=== PATIENT | female | born 1975 | race African-American/Black ===

== ENCOUNTER 2021-05-17 23:31 | Inpatient (IN) | payer OTHER ==
[~2021-05-17] VITALS: Ht 152.4 cm; Wt 86.2 kg
[2021-05-17 23:43] VITALS: BP 156/89
[2021-05-17] MEDS ORDERED: HUMALOG100 UNIT/1 SUBQ (23:49)
[2021-05-17] MEDS ORDERED: LANTUS SUBQ (23:49)
[2021-05-17] MEDS ORDERED: HYPERTENSION MED (23:50)
[2021-05-18 00:45] LABS: URINE BILIRUBIN NEGATIVE (Negative); URINE BLOOD TRACE (Negative); URINE CLARITY CLEAR; URINE COLOR YELLOW; URINE GLUCOSE-RANDOM* 3+ (Negative); URINE KETONES NEGATIVE (Negative); URINE LEUKOCYTES-REFLEX NEGATIVE (Negative); URINE NITRITE-REFLEX NEGATIVE (Negative); URINE PROTEIN (DIPSTICK) TRACE (Negative); URINE SPECIFIC GRAVITY 1.015 (1.005-1.035); URINE UROBILINOGEN 0.2 E.U./dl (0.2-1.0)
[2021-05-18 00:47] LABS: ABSOLUTE NEUTROPHILS 7.2 thou/uL (1.4-8.2); BASOPHILS 0.6 % (0.0-2.0); EOSINOPHILS 1.8 % (0.0-3.0); HEMATOCRIT 27.7 % (37.0-47.0); HEMOGLOBIN 7.8 gm/dL (12.0-15.0); LYMPHOCYTES 20.4 % (24.0-44.0); MCH 16.3 pg (26.0-34.0); MCV 58.1 fL (80.0-100.0); MONOCYTES 8.7 % (1.0-8.0); PLATELET COUNT 241 thou/uL (150-400); POLYS 68.5 % (36.0-66.0); RBC 4.76 mil/uL (4.20-5.00); WBC 10.5 thou/uL (4.0-11.0)
[2021-05-18 00:49] LABS: CALCIUM 9.2 mg/dL (8.5-10.1); CREATININE 0.8 mg/dL (0.6-1.0); POTASSIUM 3.1 mmol/L (3.5-5.1)
[2021-05-18 00:55] LABS: ALBUMIN 3.1 g/dL (3.4-5.0); MAGNESIUM 1.5 mg/dL (1.8-2.4); TOTAL BILIRUBIN 0.1 mg/dL (0.2-1.0); TOTAL PROTEIN 7.1 g/dL (6.4-8.2)
[2021-05-18 07:00] LABS: CHOLESTEROL 149 mg/dL (<200); HDL CHOLESTEROL 30 mg/dL (>40); LDL CHOLESTEROL 92 mg/dL (<100); TRIGLYCERIDE 136 mg/dL (<150); VLDL 27 mg/dL (<40)
[2021-05-18 07:08] VITALS: BP 104/53
--- NOTE | 2021-05-18 07:08 | EKG ---
[place] [address] [facility] [place] [address] ELECTROCARDIOGRAM REPORT Name: LEANNE WEBB Room #: 170-10 ADM IN M.R.#: [id number] Admission: 05/18/21 Attend Phys: Jarad Tapia MD Discharge: Date of : 77 Report #: [id number] [facility] ED Test Date: 2021-05-17 Test Time: 23:46:56 Pat Name: LEANNE WEBB Department: Room: 170 Gender: F Cath Lab Radiology Technician: REINALDO : 1975 Requested By: Geo Brannno Order Number: [id number] MD: Jose Manuel Davis Measurements Intervals [place] Rate: 99 P: 64 TN: 131 QRS: 13 QRSD: 93 T: 75 QT: 351 QTc: 451 Interpretive Statements Sinus rhythm Biatrial enlargement Borderline T wave abnormalities Baseline wander in lead(s) II,III,aVF,V1,V2,V3,V5 No previous ECG available for comparison Electronically Signed On 05-18-2021 7:07:52 CDT by Jose Manuel Davis [email or web address] <ELECTRONICALLY SIGNED> By: Jose Manuel Davis MD, [facility] 05/18/21706 45 45 Jose Manuel Davis MD, FAC /EPI
[2021-05-18 07:51] LABS: % SATURATION 4 % (20-39); IRON 15 ug/dL (50-170); TIBC 411 ug/dL (250-450)
[2021-05-18 09:25] VITALS: BP 148/89
--- NOTE | 2021-05-18 11:24 | 2DMMODE ---
[facility] [place] [address] [place] [address] 2 D/M-MODE ECHOCARDIOGRAM Name: LEANNE WEBB Room #: 170-10 ADM IN M.R.#: [id number] Admission: 05/18/21 Attend Phys: Jarad Tapia MD Discharge: Date of : 77 Report #: [id number] THIS REPORT FOR: cc: FAM - No family physician/PCP FAM - No family physician/PCP Sai Kinsey MD [facility] ~ APPROVED REPORT Study performed: 05/18/2021 08:50:35 EXAM: Comprehensive 2D, Doppler, and color-flow Echocardiogram Patient Location: ER Room #: 10 Status: routine BSA: 1.83 HR: 92 bpm BP: 104/53 mmHg Rhythm: NSR Other Information Study Quality: Good Indications Diabetes Non STEMI Chest Pain Hypertension/HDD 2D Dimensions RVDd: 28.27 mm IVSd: 14.97 (7-11mm) LVOT Diam: 20.56 (18-24mm) LVDd: 40.07 mm PWd: 14.85 (7-11mm) Ascending Ao: 29.91 (22-36mm) LVDs: 25.50 (25-40mm) Left Atrium: 31.55 (27-40mm) Aortic Root: 27.08 mm Volumes Left Atrial Volume (Systole) Single Plane 4CH: 43.54 mL Single Plane 2CH: 48.32 mL LA ESV Index: 28.00 mL/m2 Aortic Valve AoV Peak Judah.: 1.40 m/s [facility] [address] [place] [address] 2 D/M-MODE ECHOCARDIOGRAM Name: LEANNE WEBB Room #: 170[facility] ADM IN M.R.#: [id number] Admission: 05/18/21 Attend Phys: Jarad Tapia MD Discharge: Date of : 77 Report #: [id number] AO Peak Gr.: 7.80 mmHg LVOT Max P.88 mmHg LVOT Max V: 1.21 m/s CHIDI Vmax: 2.88 cm2 Mitral Valve E/A Ratio: 0.8 MV Decel. Time: 247.95 ms MV E Max Judah.: 0.65 m/s MV A Judah.: 0.85 m/s MV PHT: 71.91 ms IVRT: 96.89 ms Pulmonary Valve PV Peak Judah.: 1.13 m/s PV Peak Gr.: 5.09 mmHg Pulmonary Vein P Vein S: 0.49 m/s P Vein A: 0.24 m/s P Vein D: 0.32 m/s P Vein A Dur.: 106.1 msec P Vein S/D Ratio: 1.53 Left Ventricle The left ventricle is normal size. There is normal LV segmental wall motion. Mild concentric left ventricular hypertrophy. Left ventricular systolic function is normal. The left ventricular ejection fraction is within the normal range. LVEF is 60-65%. Mild diastolic dysfunction Right Ventricle The right ventricle is normal size. The right ventricular systolic function is normal. Atria The left atrium size is normal. The right atrium size is normal. Aortic Valve The aortic valve is normal in structure. No aortic regurgitation is present. There is no aortic valvular stenosis. Mitral Valve The mitral valve is normal in structure. There is no mitral valve regurgitation noted. No evidence of mitral valve stenosis. Tricuspid Valve The tricuspid valve is normal in structure. There is no tricuspid valve regurgitation noted. [facility] [address] [place] [address] 2 D/M-MODE ECHOCARDIOGRAM Name: LEANNE WEBB Room #: 170-10 ADM IN .R.#: [id number] Admission: 05/18/21 Attend Phys: Jarad Tapia MD Discharge: Date of : 77 Report #: [id number] Pulmonic Valve The pulmonary valve is normal in structure. There is no pulmonic valvular regurgitation. Great Vessels The aortic root is normal in size. IVC is normal in size and collapses >50% with inspiration. Pericardium There is no pericardial effusion. <Conclusion> Left ventricular systolic function is normal. There is normal LV segmental wall motion. Mild concentric left ventricular hypertrophy. LVEF is 60-65%. Mild diastolic dysfunction The aortic valve is normal in structure. No aortic regurgitation or stenosis The mitral valve is normal in structure. No mitral valve regurgitation. Pulmonary artery could not be reliably ascertained There is no pericardial effusion. <ELECTRONICALLY SIGNED> By: Sai Kinsey MD, FACC 05/18/211123 23 23 Sai Kinsey MD, FACC /INF
--- NOTE | 2021-05-18 13:15 | NUR ---
PT STATES SHE WANTS TO GO HOME, STATES SHE IS WILLING TO SIGN OUT AMA. THIS RN SPOKE WITH DR ESQUIVEL WHO STATES HE WANTS PT TO WAIT FOR RESULTS OF STRESS TEST PRIOR TO DISCHARGE. RN TALKED WITH PT AND SHE IS WILLING TO STAY AT THIS TIME AND WAIT FOR RESULTS.
[2021-05-18 13:50] VITALS: BP 138/95
[2021-05-18] MEDS ORDERED: METOPROLOL SUCC25 M1 PO (13:52)
[2021-05-18] MEDS ORDERED: BENICAR20 MG PO (13:52)
[2021-05-18] MEDS ORDERED: PEPCID20 MG PO (13:52)
[2021-05-18] MEDS ORDERED: LIPITOR40 MG PO (13:52)
[2021-05-18] MEDS ORDERED: ACETAMINOPHEN325 M1 PO (13:52)
[2021-05-18 14:00] VITALS: BP 138/95
[2021-05-19 01:06] LABS: GLYCOHEMOGLOBIN (HGB A1C) 15.5 % (4.8-5.6)
== END 2021-05-18 14:07 | disposition home or self-care (01) | DRG 282 ==
LOC: ER 23:31 → EROBS 05-18 01:29
PROVIDERS: Emergency Medicine; Nurse Practitioner Family; ADMIT Hospitalist; ATTEND Hospitalist
DX: I21.4 Non-ST elevation (NSTEMI) myocardial infarction (principal); I10 Essential (primary) hypertension; D50.9 Iron deficiency anemia, unspecified; E11.65 Type 2 diabetes mellitus with hyperglycemia; E87.6 Hypokalemia; E83.42 Hypomagnesemia; K21.9 Gastro-esophageal reflux disease without esophagitis; F12.90 Cannabis use, unspecified, uncomplicated; D63.8 Anemia in other chronic diseases classified elsewhere; Z20.822 Contact with and (suspected) exposure to COVID-19; Z82.49 Family history of ischemic heart disease and other diseases of the circulatory system; Z91.14 Patient's other noncompliance with medication regimen

== ENCOUNTER 2021-05-27 02:02 | Inpatient (IN) | payer OTHER ==
[2021-05-27] VITALS (7 sets, daily range): BP systolic 144–179; BP diastolic 78–103
[~2021-05-27] VITALS: Ht 167.6 cm; Wt 88.9 kg
--- NOTE | ~2021-05-27 | EEG ---
[facility] [place] [address] [place] [address] ELECTROENCEPHALOGRAM Name: LEANNE WEBB Room #: 464-P ADM IN M.R.#: [id number] Admission: 05/27/21 Attend Phys: Kike Brown MD Discharge: Date of : 77 Report #: [id number] THIS REPORT FOR: //name// DATE OF SERVICE: 05/28/2021 This patient is being evaluated for seizures. EEG was done by placing the electrode by standard 10-20 system of electrode placement. Both referential and sequential montages were used for recording. Background activity in this patient's EEG is about 8 Hz and 40 microvolts, sometime it goes even higher than that. The patient goes to sleep, that is associated with bilateral slowing and vertex sharp waves. Initial EEG showed what appeared to be delta range slowing with some sharper activity on the left side. That is difficult to separate from the artifact. IMPRESSION: The electrographic seizure from the right occipital lobe has resolved. There is question of seizure activity arising diffusely from the left cerebral hemisphere, but it is difficult to confirm that as it can be artifact. Thank you very much for this referral. By: 1448 1509 Luis Terrazas MD /nt
[~2021-05-27 02:02] MED LIST: ACETAMINOPHEN325 M1 PO; BENICAR20 MG PO; HUMALOG100 UNIT/1 SUBQ; HYPERTENSION MED; LANTUS SUBQ; LIPITOR40 MG PO; METOPROLOL SUCC25 M1 PO; PEPCID20 MG PO
[2021-05-27 02:46] LABS: ABSOLUTE NEUTROPHILS 4.2 thou/uL (1.4-8.2); BASOPHILS 1.5 % (0.0-2.0); EOSINOPHILS 2.3 % (0.0-3.0); HEMOGLOBIN 8.1 gm/dL (12.0-15.0); LYMPHOCYTES 32.4 % (24.0-44.0); MCH 16.6 pg (26.0-34.0); MCHC 27.1 g/dL (28.0-37.0); MCV 61.1 fL (80.0-100.0); PLATELET COUNT 432 thou/uL (150-400); POLYS 52.8 % (36.0-66.0); RBC 4.92 mil/uL (4.20-5.00); RDW 25.2 % (10.5-14.5)
[2021-05-27 03:09] LABS: ALBUMIN 3.1 g/dL (3.4-5.0); CALCIUM 8.7 mg/dL (8.5-10.1); CREATININE 0.9 mg/dL (0.6-1.0); POTASSIUM 4.2 mmol/L (3.5-5.1); TOTAL BILIRUBIN 0.2 mg/dL (0.2-1.0); TOTAL PROTEIN 7.8 g/dL (6.4-8.2)
[2021-05-27 03:21] LABS: ANISOCYTOSIS 3+; HYPOCHROMASIA 3+; MICROCYTES 3+; POLYCHROMASIA 1+
[2021-05-27 03:40] LABS: URINE BILIRUBIN NEGATIVE (Negative); URINE BLOOD TRACE (Negative); URINE CLARITY CLEAR; URINE COLOR YELLOW; URINE GLUCOSE-RANDOM* 3+ (Negative); URINE KETONES 1+ (Negative); URINE LEUKOCYTES-REFLEX NEGATIVE (Negative); URINE NITRITE-REFLEX NEGATIVE (Negative); URINE PROTEIN (DIPSTICK) NEGATIVE (Negative); URINE SPECIFIC GRAVITY 1.015 (1.005-1.035); URINE UROBILINOGEN 0.2 E.U./dl (0.2-1.0)
[2021-05-27 03:49] LABS: AMP/METHAMP Negative (Negative); BARBITURATES Negative (Negative); BENZODIAZEPINES Negative (Negative); COCAINE Negative (Negative); METHADONE Negative (Negative); OPIATES Negative (Negative); PCP Negative (Negative)
--- NOTE | 2021-05-27 12:36 | EKG ---
[place] [address] [place] [address] ELECTROCARDIOGRAM REPORT Name: LEANNE WEBB Room #: 170-5 ADM IN M.R.#: [id number] Admission: 05/27/21 Attend Phys: Shilpa Sanderson MD Discharge: Date of : 77 Report #: [id number] [facility] ED Test Date: 2021-05-27 Test Time: 02:18:29 Pat Name: LEANNE WEBB Department: Room: 170 Gender: F Electrical Installation Supervisor: MPARK : 1975 Requested By: Rogelio Cowart Order Number: [id number] MD: Sai Kinsey Measurements Intervals [place] Rate: 98 P: 54 VT: 134 QRS: 22 QRSD: 84 T: 69 QT: 359 QTc: 459 Interpretive Statements Sinus rhythm Biatrial enlargement Nonspecific T abnormalities, lateral leads Compared to ECG 05/17/2021 23:46:56 No significant changes Electronically Signed On 05-27-2021 12:36:46 FARM EQUIPMENT OPERATOR by Sai Kinsey [email or web address] <ELECTRONICALLY SIGNED> By: Sai Kinsey MD, [facility] 05/27/21 1236 0218 7 Sai Kinsey MD, FACC /EPI
--- NOTE | 2021-05-27 13:39 | EEG ---
[facility] [place] [address] ELECTROENCEPHALOGRAM Name: LEANNE WEBB Room #: 1705 [facility] IN M.R.#: [id number] Admission: 05/27/21 Attend Phys: Shilpa Sanderson MD Discharge: Date of : 77 Report #: [id number] THIS REPORT FOR: //name// HISTORY: The patient is a 46-year-old female with history of seizure. Apparently, the patient had a seizure prior to this hospitalization as well. DESCRIPTION: Using the 10-20 electrode system, an electroencephalogram was performed in the Emergency Room. The record consists of bilaterally symmetrical low amplitude activity with no well-developed posterior dominant rhythm. The patient is drowsy. During the recording, intermittent spikes and sharp waves were seen at O2. Towards the end of the recording, there was a crescendo-decrescendo pattern of the sharp waves at O2 consistent with an electrographic seizure lasting approximately 3 minutes. There were no outward signs of seizure activity in the patient. IMPRESSION: This is an abnormal adult record consistent with epileptiform activity originating from the right occipital lobe. During the recording, there was an electrographic seizure lasting approximately 3 minutes with no outward manifestations in the patient. Underlying focal pathology should be ruled out. <ELECTRONICALLY SIGNED> By: Shannon Crabtree DO 05/27/21 1339 1117 1141 Shannon Crabtree DO /nt
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
[2021-05-27 14:02] LABS: % SATURATION 4 % (20-39); IRON 21 ug/dL (50-170); TIBC 510 ug/dL (250-450)
[2021-05-27] MEDS ORDERED: HUMALOG100 UNIT/1 (17:31)
--- NOTE | 2021-05-27 18:30 | NUR ---
PT ADMITED FROM ER. ADMISSION HX AND ASSESSMENT COMPLETED. DENIED HAVING PAIN OR DISCOMFORT. PT ORIENTED TO THE ROOM AND THE CALL LIGHT SYSTEM. NEW ORDERS NOTED.
--- NOTE | 2021-05-28 04:49 | NUR ---
ASSUMED PT CARE THIS PM. PT IS ALERT AND ORIENTED X4. PT IS SEIZURE PRECAUTIONS. PT DID NOT VERBALIZE ANY CONCERNS AND NO VISIBLE SIGN OF DISTRESS WAS NOTED. MEDS WERE GIVEN PER EMAR ORDERS. PT IS ON RA. FALL PRECAUTIONS IN PLACE. WILL CONTINUE TO MONITOR.
[2021-05-28 05:14] VITALS: BP 163/88
[2021-05-28 06:01] LABS: HEMATOCRIT 30.2 % (37.0-47.0); HEMOGLOBIN 8.4 gm/dL (12.0-15.0); MCH 16.9 pg (26.0-34.0); MCV 60.4 fL (80.0-100.0); RBC 4.99 mil/uL (4.20-5.00); RDW 25.5 % (10.5-14.5); WBC 5.5 thou/uL (4.0-11.0)
[2021-05-28 06:16] LABS: CALCIUM 8.5 mg/dL (8.5-10.1); CREATININE 0.8 mg/dL (0.6-1.0)
[2021-05-28 08:30] VITALS: BP 158/90
--- NOTE | 2021-05-28 15:06 | NUR ---
PT ADMITTED RELATED TO SEIZURE, HYPOGLYCEMIA. CM REVIEWED CHART AND SPOKE WITH CARE TEAM. CM MET WITH PT AT BEDSIDE THIS DAY. PT APPEARED TO BE A&O X4. CM ROLE INTRODUCED. PT INDICATED THAT SHE LIVES IN A HOUSE WITH HER BOYFRIEND WITH 6 STEPS TO ENTER AND 6 STEPS INSIDE. PT INDICTED SHE DOESN'T HAVE A PCP OR INSURANCE. PT INDICATED SHE HAD INITIALLY BEEN DIAGNOSED WITH DM AT [place] IN 2017. SHE GOT MEDS THROUGH DR. TUCKER AT [facility] AND HER BF HAS BEEN PAYING FOR THEM FOR HERE. PT INDICATED SHE THINKS A MEDICAID APPLICATION HER BEEN FILED ON HER BEHALF HERE OR AT [facility] IN THE RECENT PAST. CM ASKED THAT FIRST SOURCE CHECK TO SEE. CM FOLLOWING. CECY COX HAD MRI THIS DAY.
--- NOTE | 2021-05-28 15:32 | NUR ---
ASSUMED PT CARE THIS AM. PT A&OX4, ABLE TO MAKE NEEDS KNOWN. PATIENT REPORTS SEEING SPORTS, PHYSICIAN MADE AWARE OF THIS. IV REMAINS PATENT. SEIZURE PRECAUTIONS ARE IN PLACE, BUT PATIENT REFUSING BED ALARM. CALL LIGHT WITHIN REACH.
[2021-05-28 20:44] VITALS: BP 151/87
[2021-05-29 02:00] VITALS: BP 145/84
--- NOTE | 2021-05-29 04:01 | NUR ---
Pt. rested quietly during the night when checked on during frequent rounds. She c/o a headache and po tuyleno given (see emar) with relief noted. No noted seizure activity throughout the shift.
[2021-05-29 05:58] LABS: CHOLESTEROL 193 mg/dL (<200); HDL CHOLESTEROL 31 mg/dL (>40); LDL CHOLESTEROL 139 mg/dL (<100); TC:HDL 6.2 Ratio (Not establshd); TRIGLYCERIDE 118 mg/dL (<150); VLDL 24 mg/dL (<40)
[2021-05-29 06:04] LABS: SERUM ASSESSMENT Clear
[2021-05-29 07:20] VITALS: BP 142/98
[2021-05-29] MEDS ORDERED: ADULT LOW DOSE81 MG PO (09:32)
[2021-05-29] MEDS ORDERED: NOVOLOG100 UNIT/1 SUBQ (09:33)
[2021-05-29] MEDS ORDERED: LANTUS SUBQ (09:33)
[2021-05-29] MEDS ORDERED: KEPPRA XR500 MG PO (09:47)
[2021-05-29] MEDS ORDERED: FOLIC ACID1 MG PO (09:47)
[2021-05-29 10:40] VITALS: BP 142/98
--- NOTE | 2021-05-29 10:51 | NUR ---
PT IS ALERT AND ORIENTED X4. SR ON THE MONITOR. REVIEWED DISCHARGE INSTRUCTIONS WITH PT. PT VERBALIZED UNDERSTANDING OF INSTRUCTIONS, MEDICATIONS, AND FOLLOW UP. DISCONTINUED IV. CURRENTLY WAITING FOR RIDE. WILL CONTINUE TO MONITOR.
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
--- NOTE | 2021-05-29 15:16 | NUR ---
CARE TEAM INDICATED THAT PT IS MEDICALLY STABLE TO DC HOME THIS DAY. PT TO DC HOME TO SELF CARE. PT INDICATED SHE WOULD BE ABLE TO PAY TO FILL HER MEDS. NO OTHER CM INTERVENTION INDICATED. CASE CLOSED.
== END 2021-05-29 11:33 | disposition home or self-care (01) | DRG 101 ==
LOC: ER 02:02 → EROBS 04:25 → 4W 04:25
PROVIDERS: Emergency Medicine; Nurse Practitioner Family; Psychiatry & Neurology Neurology; Psychiatry & Neurology Neuromuscular Medicine; ADMIT Hospitalist; ATTEND Hospitalist
PROC: 4A00X4Z Measurement of Central Nervous Electrical Activity, External Approach (ICD-10-PCS; principal; 2021-05-28)
DX: G40.909 Epilepsy, unspecified, not intractable, without status epilepticus (principal); E11.65 Type 2 diabetes mellitus with hyperglycemia; Z79.4 Long term (current) use of insulin; Z20.822 Contact with and (suspected) exposure to COVID-19; K21.9 Gastro-esophageal reflux disease without esophagitis
CPT/HCPCS: 10045

== ENCOUNTER 2021-05-29 12:53 | Emergency (ER) | payer OTHER ==
[~2021-05-29] VITALS: Ht 152.4 cm; Wt 90.3 kg
[~2021-05-29 12:53] MED LIST changes: +ADULT LOW DOSE81 MG PO; +FOLIC ACID1 MG PO; +HUMALOG100 UNIT/1; +KEPPRA XR500 MG PO; +NOVOLOG100 UNIT/1 SUBQ
[2021-05-29 13:40] LABS: CALCIUM 9.5 mg/dL (8.5-10.1); CREATININE 0.9 mg/dL (0.6-1.0); POTASSIUM 3.7 mmol/L (3.5-5.1)
[2021-05-29 13:44] LABS: HEMATOCRIT 29.9 % (37.0-47.0); HEMOGLOBIN 8.8 gm/dL (12.0-15.0); MCH 17.5 pg (26.0-34.0); MCHC 29.4 g/dL (28.0-37.0); MCV 59.5 fL (80.0-100.0); PLATELET COUNT 412 thou/uL (150-400); RBC 5.03 mil/uL (4.20-5.00); RDW 25.5 % (10.5-14.5); WBC 7.5 thou/uL (4.0-11.0)
[2021-05-29 15:02] LABS: ABSOLUTE NEUTROPHILS 4.7 thou/uL (1.4-8.2); ATYPICAL LYMPHS 1 %
[2021-05-29 15:05] LABS: ANISOCYTOSIS 2+; LARGE PLATELETS FEW; MACROCYTES FEW; MICROCYTES 1+; PLATELET ESTIMATE INCREASED; TARGET CELLS OCCASIONAL
[2021-05-29 15:06] LABS: HYPOCHROMASIA SLIGHT; POLYCHROMASIA OCCASIONAL
[2021-05-29 15:24] VITALS: BP 153/83
--- NOTE | 2021-05-30 07:10 | EKG ---
[place] [address] [facility] [place] [address] ELECTROCARDIOGRAM REPORT Name: LEANNE WEBB Room #: [facility] Bri[place]#: [id number] Admission: 05/29/21 Attend Phys: Discharge: 05/29/21 Date of : 77 Report #: [id number] [facility] ED Test Date: 2021-05-29 Test Time: 13:02:48 Pat Name: LEANNE WEBB Department: Room: Gender: F It Instructor: NATALIE : 1975 Requested By: Matthias Lopez Order Number: [id number] MD: Jose Manuel Davis Measurements Intervals [place] Rate: 95 P: 14 OR: 114 QRS: 13 QRSD: 85 T: 112 QT: 320 QTc: 403 Interpretive Statements Sinus rhythm Borderline short OR interval RSR' in V1 or V2, probably normal variant LVH with secondary repolarization abnormality Compared to ECG 05/27/2021 02:18:29 RSR' in V1 or V2 now present Left ventricular hypertrophy now present Early repolarization now present Atrial abnormality no longer present Electronically Signed On 05-30-2021 7:09:50 DELINQUENT TAX COLLECTOR by Jose Manuel Davis [email or web address] <ELECTRONICALLY SIGNED> By: Jose Manuel Davis MD, FACC 05/30/21 0709 1302 1302 Jose Manuel Davis MD, [facility] /EPI
== END 2021-05-29 15:25 | disposition home or self-care (01) ==
LOC: ER 12:53
PROVIDERS: Nurse Practitioner
DX: E11.65 Type 2 diabetes mellitus with hyperglycemia (principal); I10 Essential (primary) hypertension; E78.5 Hyperlipidemia, unspecified; F17.210 Nicotine dependence, cigarettes, uncomplicated; F12.90 Cannabis use, unspecified, uncomplicated; Z79.82 Long term (current) use of aspirin; Z79.4 Long term (current) use of insulin; Z79.891 Long term (current) use of opiate analgesic; Z79.899 Other long term (current) drug therapy

== ENCOUNTER 2021-07-24 07:52 | Inpatient (IN) | payer OTHER ==
[2021-07-24] VITALS (21 sets, daily range): BP systolic 101–169; BP diastolic 67–116
[~2021-07-24] VITALS: Ht 170.2 cm; Wt 71.2 kg
--- NOTE | ~2021-07-24 | EMS ---
[place] [id number] EMS Patient Care Report Name: LEANNE WEBB Room #: PRE M.Tim#: [id number] Admission: Attend Phys: Discharge: Date of : 77 Report #: [id number] THIS REPORT FOR: //name// Report Transmitted: 07/24/2021 07:17 EMS Care Summary [place], [place]/[facility] Incident [id number] @ 07/24/2021 07:20 Incident Location [address], [place] [address] Patient LEANNE WEBB Female, 46 Years 1975 Patient Address [address], [place] [address] Patient History Diabetes,Seizures, Chief Complaint hyperglycemia Disposition Transported No Lights/[place] Reason Convulsions/Seizure Transported To [facility] Narrative Arrived to find pt laying on couch. Man in apt stated she was staying there with him while in between placed to stay. Man states he does not know any medical history about the patient other than she has seizures. Man does not know any medications she takes. Man states she almost fainted and her arms were twitching but she did not have full body shakes. Pt was answering questions however, her speech was so garbled you could not understand anything she said. [address] [address] EMS Patient Care Report Name: LEANNE WEBB Room #: PRE Brianna#: [id number] Admission: Attend Phys: Discharge: Date of : 77 Report #: [id number] Pt was placed on a stairchair and taken down one set of internal stairs. Pt placed on cot and secured with cot straps. Pt placed in surgical mask. Pt bgl level read "high". Pt administered fluid bolus and transported without incident. Care to RN. Initial Vitals @07:40P: 137,BP: 123/75,SpO2: 99, @07:38P: 140,CO: 8,SpO2: 100, @07:38P: 139, @07:34P: 142,R: 26,BP: 136/93,Pain: 0/10,GCS: 14,Glucose: -2,Revised Trauma: 12, Assessments @07:29MENTAL:Confused,Place Oriented,Person Oriented,SKIN:HEENT:Eyes: Left: Other,Eyes: Right: Other,Head/Face: Other,Neck/Airway: No Abnormalities,LUNG SOUNDS:General: No Abnormalities,Left Upper: No Abnormalities,Right Upper: No Abnormalities,Left Lower: No Abnormalities,Right Lower: No Abnormalities,ABDOMEN:General: No Abnormalities,Left Upper: No Abnormalities,Right Upper: No Abnormalities,Left Lower: No Abnormalities,Right Lower: No Abnormalities,PELVIS//GI:EXTREMITIES:Left Arm: No Abnormalities,Right Arm: No Abnormalities,Left Leg: No Abnormalities,Right Leg: No Abnormalities,PULSE:NEURO:Slurred Speech, Impression Diabetic Hyperglycemia Procedures @07:38 12-Lead ECG Response: UnchangedSucceeded @07:38 IV Therapy - Saline Lock 10cc (20 ga) Site: Antecubital-Left Response: UnchangedSucceeded @07:29 ALS Assessment Response: UnchangedSucceeded @07:35 3-Lead ECG Response: UnchangedSucceeded @07:40 IV Bolus - Normal Saline (.9% NaCl) 200cc (20 ga) Site: Antecubital-Left Response: UnchangedSucceeded Timeline 07:18,Call Received 07:18,Dispatch Notified 07:20,Dispatched 07:21,En Route 07:26,On Scene 07:28,At Patient 07:29,ALS Assessment,Response: UnchangedSucceeded, 07:34,BP: 136/93 M,PULSE: 142,RR: 26 R,SPO2: Ox,ETCO2: ,BG: -2,PAIN: 0,GCS: 14, 07:35,3-Lead ECG,Response: UnchangedSucceeded, [facility] [address] [place] [address] EMS Patient Care Report Name: LEANNE WEBB Room #: [facility].R.#: [id number] Admission: Attend Phys: Discharge: Date of : 77 Report #: [id number] 07:38,IV Therapy - Saline Lock 10cc 20 ga Site: Antecubital-Left,Response: UnchangedSucceeded, 07:38,BP: / M,PULSE: 140,RR: R,SPO2: 100 Ox,ETCO2: ,BG: ,PAIN: ,GCS: , 07:38,12-Lead ECG,Response: UnchangedSucceeded, 07:38,BP: / M,PULSE: 139,RR: R,SPO2: Ox,ETCO2: ,BG: ,PAIN: ,GCS: , 07:40,IV Bolus - Normal Saline (.9% NaCl) 200cc 20 ga Site: Antecubital-Left,Response: UnchangedSucceeded, 07:40,BP: 123/75 M,PULSE: 137,RR: R,SPO2: 99 Ox,ETCO2: ,BG: ,PAIN: ,GCS: , 07:43,Depart Scene 08:00,At Destination 08:00,Call Closed Disclaimer v1.1 Copyright 2021 [employer] This EMS Care Summary contains data elements from the applicable legal record (which may be displayed differently). It is designed to provide pertinent information for the following purposes: continuity of care, clinical quality, and state data reporting. The complete legal record is available to ED staff and administrators of the receiving hospital in [employer]'s Patient Tracker. All data is provided "as is."
[2021-07-24 08:20] LABS: HEMATOCRIT 40.7 % (37.0-47.0); HEMOGLOBIN 9.9 gm/dL (12.0-15.0); MCH 17.2 pg (26.0-34.0); MCHC 24.3 g/dL (28.0-37.0); MCV 70.6 fL (80.0-100.0); PLATELET COUNT 327 thou/uL (150-400); RBC 5.77 mil/uL (4.20-5.00); RDW 22.6 % (10.5-14.5); WBC 16.1 thou/uL (4.0-11.0)
[2021-07-24 08:23] LABS: URINE BLOOD 3+ (Negative); URINE CLARITY CLOUDY; URINE COLOR YELLOW; URINE GLUCOSE-RANDOM* 3+ (Negative); URINE KETONES 1+ (Negative); URINE LEUKOCYTES-REFLEX NEGATIVE (Negative); URINE NITRITE-REFLEX NEGATIVE (Negative); URINE PROTEIN (DIPSTICK) 1+ (Negative); URINE UROBILINOGEN 0.2 E.U./dl (0.2-1.0)
[2021-07-24 08:24] LABS: ICTOTEST (BILI CONFIRMATORY) Negative (Negative); URINE BILIRUBIN NEGATIVE (Negative)
[2021-07-24 08:32] LABS: AMP/METHAMP Negative (Negative); BARBITURATES Negative (Negative); BENZODIAZEPINES Negative (Negative); COCAINE Negative (Negative); METHADONE Negative (Negative); OPIATES Negative (Negative); PCP Negative (Negative)
[2021-07-24 08:37] LABS: BE(vivo) -23.6 mmol/L (-2 to +3); HCO3 3.8 mmol/L (22.0-26.0); PCO2 12.4 mmHg (35.0-45.0); pH 7.104 (7.360-7.450); sO2 97.2 % (92.0-98.0)
[2021-07-24 08:44] LABS: CALCIUM 10.3 mg/dL (8.5-10.1); CREATININE 4.3 mg/dL (0.6-1.0); POTASSIUM 5.9 mmol/L (3.5-5.1)
[2021-07-24 08:45] LABS: BACTERIA-REFLEX >30 Many /HPF (None Seen); SQUAMOUS 0-3 Few /LPF (0-3); URINE RBC 3-10 Few /HPF (NONE SEEN); URINE WBC-REFLEX 0-5 Rare /HPF (0-5)
[2021-07-24 08:46] LABS: AMORPHOUS URATES Many /LPF (None Seen); CASTS None Seen /LPF (None Seen)
[2021-07-24 09:28] LABS: ABSOLUTE NEUTROPHILS 14.7 thou/uL (1.4-8.2)
[2021-07-24 09:29] LABS: ANISOCYTOSIS 1+; HYPOCHROMASIA 1+; MICROCYTES 1+
[2021-07-24 10:08] LABS: PHOSPHORUS 7.1 mg/dL (2.6-4.7)
[2021-07-24 13:31] LABS: ALBUMIN 3.3 g/dL (3.4-5.0); CALCIUM 9.6 mg/dL (8.5-10.1); MAGNESIUM 2.7 mg/dL (1.8-2.4); PHOSPHORUS 1.9 mg/dL (2.6-4.7)
[2021-07-24 13:35] LABS: CREATININE 3.3 mg/dL (0.6-1.0)
[2021-07-24 13:41] LABS: POTASSIUM 5.9 mmol/L (3.5-5.1)
[2021-07-24 14:45] LABS: ALBUMIN 3.4 g/dL (3.4-5.0); CALCIUM 9.9 mg/dL (8.5-10.1); CREATININE 3.1 mg/dL (0.6-1.0); PHOSPHORUS 1.6 mg/dL (2.6-4.7)
[2021-07-24 14:46] LABS: POTASSIUM 3.3 mmol/L (3.5-5.1)
[2021-07-24 18:14] LABS: ALBUMIN 3.1 g/dL (3.4-5.0); CALCIUM 9.7 mg/dL (8.5-10.1); CREATININE 2.6 mg/dL (0.6-1.0); MAGNESIUM 2.6 mg/dL (1.8-2.4); PHOSPHORUS 1.6 mg/dL (2.6-4.7)
[2021-07-24 18:15] LABS: POTASSIUM 4.6 mmol/L (3.5-5.1)
[2021-07-25] VITALS (49 sets, daily range): BP systolic 109–184; BP diastolic 75–138
--- NOTE | 2021-07-25 08:50 | NUR ---
THIS RN MONITORED BLOOD SUGARS OVENIGHT. ATTEMPTED TO TITRATE PRECEDEX BUT PT DID NOT TOLERATE. BECAME VERY AGITATED, THRASHING AROUND IN THE BED, AND DISLODGED PERIPHERAL IV. WILL CONTINUE WITH POC
--- NOTE | 2021-07-25 09:08 | NUR ---
46-year-old female DX of diabetes type 2, hypertension. Covid in past and was covid positive. she takes insulin and pills. last admission She has been her off and on in April and May, which showed she had a small stroke, neurology felt this would not cause her any seizure like activity. Her EEG last time was abnormal, but a repeat EEG and did not show any seizure activity. This admits, brought in by EMS confused. Noted she had BS greater than 500. Cm spoke with her roommate/friend Mik Elaine # [phone], he is out of town and will be gone for a while but ammon or my sister Brie Elaine # [phone] can help out if needed. 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 No dme needs. Drives vehicle. No anticipated dc needs will cont following as needed.
[2021-07-25 09:49] LABS: CALCIUM 9.4 mg/dL (8.5-10.1); POTASSIUM 4.2 mmol/L (3.5-5.1)
[2021-07-25 09:53] LABS: CREATININE 1.6 mg/dL (0.6-1.0)
[2021-07-25 09:54] LABS: ALBUMIN 2.7 g/dL (3.4-5.0); MAGNESIUM 2.2 mg/dL (1.8-2.4); PHOSPHORUS 1.3 mg/dL (2.5-4.9)
--- NOTE | 2021-07-25 19:20 | NUR ---
TALKED WITH THE DOCTOR A FEW TIMES TODAY ABOUT FS AND IV FLUIDS ORDERS IN ALL DONE. TALK TO FAMILY TODAY. PATIENT IS RESTING IN BED WITH CALL RODRIGUEZ IN REACH.
[2021-07-25 20:18] LABS: CALCIUM 8.7 mg/dL (8.5-10.1); CREATININE 1.4 mg/dL (0.6-1.0); POTASSIUM 3.5 mmol/L (3.5-5.1)
[2021-07-26] VITALS (27 sets, daily range): BP systolic 105–159; BP diastolic 63–104
[2021-07-26 05:48] LABS: HEMATOCRIT 37.1 % (37.0-47.0); HEMOGLOBIN 10.4 gm/dL (12.0-15.0); MCH 17.2 pg (26.0-34.0); MCHC 28.1 g/dL (28.0-37.0); MCV 61.3 fL (80.0-100.0); RBC 6.05 mil/uL (4.20-5.00); RDW 21.5 % (10.5-14.5); WBC 10.8 thou/uL (4.0-11.0)
[2021-07-26 05:49] LABS: PLATELET COUNT 106 thou/uL (150-400)
[2021-07-26 06:31] LABS: ABSOLUTE NEUTROPHILS 8.2 thou/uL (1.4-8.2); ANISOCYTOSIS 2+; MICROCYTES 3+; PLATELET ESTIMATE DECREASED
[2021-07-26 06:32] LABS: BURR CELLS 1+; HYPOCHROMASIA 3+; LARGE PLATELETS FEW; POIKILOCYTOSIS 2+; SCHISTOCYTES 1+
[2021-07-26 06:43] LABS: ALBUMIN 2.5 g/dL (3.4-5.0); CALCIUM 8.4 mg/dL (8.5-10.1); CREATININE 1.4 mg/dL (0.6-1.0); MAGNESIUM 1.8 mg/dL (1.8-2.4); PHOSPHORUS 3.3 mg/dL (2.5-4.9); POTASSIUM 4.2 mmol/L (3.5-5.1)
--- NOTE | 2021-07-26 13:54 | NUR ---
ADDITIONAL ACCESS NEEDED. DISCUSSED MIDLINE PLACEMENT AND PATIENT AND SANDER PORTABLE MACHINE AGREED. A #4F MIDLINE WAS PLACED PER HOSPITAL POLICY. THE RIGHT UPPER ARM BASILIC WAS A 20% VEIN VS CATHETER RATIO. THE LINE WAS TRIMMED TO 12CM AND ANDVANCED WITHOUT DIFFICULTY. THE LINE WAS SECURED AND RELEASED FOR USE
--- NOTE | 2021-07-26 16:40 | NUR ---
Pt blood glucose [address] Parra called and 40 units of lantus and 30 unites of lispro given. recheck BG 443. Dr Macario called again.He was informed that the patient's BG elevated, tachycardic to 119, tachypneic to 50's when resting. order to put patient back on insulin gtt, ivf D5W at 250ml/hr, precedex gtt restart, NPO and renal function panel bid orders given.
[2021-07-27] VITALS (27 sets, daily range): BP systolic 93–127; BP diastolic 44–99
[2021-07-27 09:59] LABS: HEMATOCRIT 35.3 % (37.0-47.0); HEMOGLOBIN 9.7 gm/dL (12.0-15.0); MCHC 27.5 g/dL (28.0-37.0); RBC 5.7 mil/uL (4.20-5.00); RDW 20.8 % (10.5-14.5); WBC 9.8 thou/uL (4.0-11.0)
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
[2021-07-27 11:09] LABS: CALCIUM 8.7 mg/dL (8.5-10.1); PHOSPHORUS 2.6 mg/dL (2.6-4.7); POTASSIUM 3.1 mmol/L (3.5-5.1)
[2021-07-27 21:34] LABS: ALBUMIN 1.8 g/dL (3.4-5.0); CALCIUM 8.4 mg/dL (8.5-10.1); CREATININE 0.9 mg/dL (0.6-1.0); MAGNESIUM 2.2 mg/dL (1.8-2.4); POTASSIUM 3.7 mmol/L (3.5-5.1); TOTAL BILIRUBIN 0.2 mg/dL (0.2-1.0); TOTAL PROTEIN 6.2 g/dL (6.4-8.2)
[2021-07-28] VITALS (35 sets, daily range): BP systolic 87–169; BP diastolic 49–112
--- NOTE | 2021-07-28 03:14 | NUR ---
Pt comative and agitated throughout the night. At 2049 the insulin gtt was turned off d/t a concerning low BG. Repeat fingerstick read 117. CMP ordered and resulted 134 while still recieving dextrose IVF. 2145 BG 105 while recieving dextrose. 2330 BG read low again, 30, pt awake and alert. Pt refusing to let me or any other nurses repeat her BG. ALEX Elaine notified. Insulin gtt remained turned off, dextrose running. Around 0200 pt pulled off all monitors, pt was being combative and argumentative, and attempted to get out of bed. Security called and to bedside. ~0230 pt allowed me to check a BG which read high and insulin gtt was restarted at 6 units/hr. Will recheck BG at 0330 if pt allows.
--- NOTE | 2021-07-28 03:22 | NUR ---
07/27/212099 asked ALEX Elaine if she wanted CMPs q4 with the DKA protocol and she said no. Chele stated it was okay for pt to have a clear liquid diet.
[2021-07-28 11:03] LABS: CALCIUM 8.6 mg/dL (8.5-10.1); POTASSIUM 3.1 mmol/L (3.5-5.1)
--- NOTE | 2021-07-28 12:12 | NUR ---
PT REFUSING CARES, DEMANDING THAT THIS RN DISCONNECTS HER FROM THE INSULIN GTT, IVF AND PRECEDEX GTT. ABLE TO OBTAIN BG CHECKS THIS AM, REFUSING THIS AFTERNOON, REFUSING VITAL SIGN CHECKS, REFUSING ASSISTANCE WITH ADLS. PT AOX4, BUT LETHARGIC AND SHOWING SIGNS OF DELIRIUM AND HALLUCINATIONS. DR MARTIN NOTIFIED, ATTEMPTED TO [place] [facility] [place] AVAILABLE. PHONED FAMILY AND THEY REFUSE TO PICK HER UP TO LEAVE AMA. TRANSFER ORDERS TO WEST PLACED.
--- NOTE | 2021-07-28 12:55 | NUR ---
PT UNCOOPERATIVE AND VERBALLY AGGRESSIVE THIS MORNING AND AFTERNOON. OFFERED DAILY CARES ASSISTANCE, REFUSED. PT CONTINUES TO REFUSE CARE/TREATMENT, REFUSES VITAL CHECKS AND BLOOD GLUCOSE CHECKS. CONTINUES TO EXHIBIT SIGNS OF DELIRIUM. PT ACCUSED THIS RN OF SMELLING LIKE ALCOHOL AND LYING TO HER, ASKED TO HAVE A DIFFERENT RN ASSIGNED TO HER.
--- NOTE | 2021-07-28 15:45 | NUR ---
SPOKE TO PT'S CASS ADAM, ON THE PHONE. UPDATED ON POC, RELAYED THAT PT IS MORE RECEPTIVE TO TREATMENT THIS AFTERNOON AND ALLOWING STAFF TO HELP HER AND CARE FOR HER. PT JAIR WAS APPRECIATIVE AND HOPEFUL THAT SHE CONTINUES TO IMPROVE AND PROGRESS. HR ELEVATED THIS AFTERNOON, REACHED OUT TO JO ALDRICH ANTI-ANXIETY ORDERED. K 3.1, 40MEQ GIVEN PER PROTOCOL.
--- NOTE | 2021-07-28 22:56 | NUR ---
Upon 1999 assessment patient febrile at 102.5. HR in the 140's. RR in the 40's. O2 sat on room air 100%. Reviewed home meds. Noted patient takes Metoprolol XL 25 mg daily and Keppra 500 mg BID. Called ALEX Johnson, informed of above assessment. Orders received for meds and Tylenol. Blood cultures were addressed this am and Rocephin ordered daily. Patiet copperative and took meds without difficulty. Patient is slow, but can reposition self, use the call light, and her cell phone. Pt is weak and is having a lot of pain in the right lower leg. The SCD is too painful so it is off at this time. There is brusing on the dorsal aspect of the foot and the lateral side of the foot. Tylenol given. Fever broke. Bath given. Patient sat on the bedpan and had a small BM. HR remains 130's, BP down to 120's/60s. Will recheck temp at midnight.
[2021-07-29] VITALS (10 sets, daily range): BP systolic 123–174; BP diastolic 84–110
--- NOTE | 2021-07-29 03:00 | NUR ---
Patient has been unable to sleep. Patient has not been able to get comfortable. Repositioned many times. Patient is taking adequate oral intake, drinking lots of water. Tylenol brought temp down to 99.4. HR came down briefly to the 130s but is now back up to 149-150. BP 144/89. Call placed to Kaley Elaine SCREEN PRINTING MACHINE LOADER UNLOADER with above information.
[2021-07-29 04:26] LABS: HEMATOCRIT 31.7 % (37.0-47.0); MCHC 28.3 g/dL (28.0-37.0); RBC 5.28 mil/uL (4.20-5.00); RDW 20.3 % (10.5-14.5); WBC 10.6 thou/uL (4.0-11.0)
[2021-07-29 04:42] LABS: CALCIUM 8.5 mg/dL (8.5-10.1); POTASSIUM 3.2 mmol/L (3.5-5.1); TOTAL BILIRUBIN 0.2 mg/dL (0.2-1.0); TOTAL PROTEIN 6.8 g/dL (6.4-8.2)
--- NOTE | 2021-07-29 07:20 | NUR ---
Patient's HR came down to the 120's after the Metoprolol. Blood pressure stayed in the 140's. RR better in the upper 20's. Continues to have a lot of pain in the right LE/foot. Tylenol repeated. Patient has not slept tonight. Tired ice pack on ankle, that did not work. Tried to put in up on a pillow, that did not work. Fan is on. Patient statesshe just cannot get comfortable. discussed with dry RN about something stronger for pain. Will address with physician. See documentation on interventions for assessment details.
--- NOTE | 2021-07-29 16:48 | NUR ---
URINARY CATHETER REMOVED AT PATIENT REQUEST, PT MORE AWAKE AND COHERENT TODAY, CAM NEGATIVE. CONTINUED GENERALIZED WEAKNESS, VSS, HOME MEDS RESTARTED. PT CONSULTED, VASC ACCESS CONSULTED FOR NEW IV ACCESS.
--- NOTE | 2021-07-29 19:50 | NUR ---
PT NOTIFIED OF UPCOMING TRANSFER TO [facility], BED 358. GATHERED PT BELONGING, TX TO FLOOR BED, BG 68, GIVEN 1 OJ AND 1 APPLE JUICE. REPORT GIVEN TO MARLON RN, PT TX BY 2 RNS.
--- NOTE | 2021-07-29 23:20 | NUR ---
PT ALERT AND ORIENTED TO PERSON AND SITUATION. REORIENTED PT TO CORRECT HOSPITAL. TEMP 100.6. BP MODERATELY ELEVATED. CLONIDINE GIVEN. HR 124. SAT 95% ON RA. BS 171. 10 UNITS LISPRO GIVEN. PT DRANK 1 MILK. REFUSED REST OF TRAY. SEROQUEL AND XANAX GIVEN FOR ANXIETY AND SLEEP. HYDROCODONE GIVEN FOR R LE PAIN. PT RESTING QUIETLY PRESENTLY. REPORT GIVEN TO EMILY DENNIS WHOM ASSUMED CARE OF PT AT 23:00. INSTRUCTED PT ON FALL PRECAUTIONS AND NOT TO GET OOB WITHOUT ASSISTANCE. BRUISES NOTED ON R FOOT AND DISCOLORED AREAS NOTED ON LEFT TOES. PT STATED THEY HAD SOMETHING TIGHT ON HER FEET WHILE SHE WAS OUT OF IT IN THE ICU. PEDAL PULSES ARE 1+. XRAYS OF R FOOT WERE NEGVATIVE FOR FX.
[2021-07-30] VITALS (7 sets, daily range): BP systolic 98–156; BP diastolic 64–108
--- NOTE | 2021-07-30 00:07 | NUR ---
PT TRANSFERED TO 3W. IVF INTACT. PT ABLE TO STATE NAME. PT ALERT TO SELF AND SITUATION. PT HAS COUGH LOOSE. LUNGS DIMINISHED. BS DECREASED ABD DISTENDED. PT DOES REACH OUT TO PET NURSES ARM AND HAIR. R FOOT PRAFO ON. BED ALARM ON. PENIS WOUND PICTURE TAKEN. URRUTIA TO DD. EDEMA GENERALIZED AND IN PENIS.
--- NOTE | 2021-07-30 00:17 | NUR ---
PT RESTING IN BED. PT AWAKENED FOR ASSESSMENT. PT SPEAKING VERY SOFTLY, MUMBLED. LUNGS CLEAR. PT STATING CHRONIC PAIN IN FOOT. PT CONTINUES WITH ELEVATED TEMPERATURE, PT ALSO CONTINUES TO REQUEST SEVERAL BLANKETS TO COVER IN.
--- NOTE | 2021-07-30 01:25 | NUR ---
HR MAINTAINING LOW 12O'S. PT IS RESTING AFTER PRN FOR PAIN AND ANXIETY. PT REPORTING CONTINUE BLE PAIN. PROVIDER UPDATED RE HR.
--- NOTE | 2021-07-30 06:05 | NUR ---
AM HR LOW 130'S. PT TOLD NURSE SHE HAD BEEN MOVING AROUND. PT PROVIDED PRN FOR FEVER, PAIN AND AM METOPROLOL. PT RESTING IN BED, REQUESTING ICE CHIPS AND MORE BLANKETS, PROVIDED. BED ALARM ON.
--- NOTE | 2021-07-30 06:35 | NUR ---
PT REMAINS RESTING NO C/O CHEST PAIN. EKG OBTAINED, LAB PRESENT AND PT DRAWING BLOOD. EKG RESULTS NOTED TO BE ABNORMAL AND PROVIDER CALLED. EKGS PER PROVIDER REQUEST TAKEN TO ED FOR REFERRAL. PROVIDER STATED CALLING ED DR AND NURSE COLOR TECHNICIAN. CHARGE NURE UPDATED.
--- NOTE | 2021-07-30 07:00 | NUR ---
PRODUCTION SUPPORT DEVELOPER CALLED TO TELL NURSE THAT PROVIDER PLACED STAT ORDERS. STAT CARDIOLOGY CONSULT CALLED, STAT TROPONIN OBTAINED. REPORT GIVEN TO DAY NURSE.
[2021-07-30 07:19] LABS: ALBUMIN 1.8 g/dL (3.4-5.0); CALCIUM 8.3 mg/dL (8.5-10.1); CREATININE 0.9 mg/dL (0.6-1.0); MAGNESIUM 1.5 mg/dL (1.8-2.4); POTASSIUM 3.6 mmol/L (3.5-5.1); TOTAL BILIRUBIN 0.1 mg/dL (0.2-1.0); TOTAL PROTEIN 6.5 g/dL (6.4-8.2)
[2021-07-30 14:03] LABS: HEMATOCRIT 29.2 % (37.0-47.0); HEMOGLOBIN 8.2 gm/dL (12.0-15.0); MCH 16.8 pg (26.0-34.0); MCHC 27.9 g/dL (28.0-37.0); MCV 60.1 fL (80.0-100.0); RBC 4.86 mil/uL (4.20-5.00); RDW 20.7 % (10.5-14.5); WBC 11.9 thou/uL (4.0-11.0)
--- NOTE | 2021-07-30 14:32 | NUR ---
RN ASSUMED PT'S CARE AT 0700-1000AM, PT IS A&OX4, PT IS ON ROOM AIR, BUT PT IS VERY WEAK , RN HAS CALLED DR TO REPORT PT'S ABNORMAL EKG ( NV ) AND HIGH TROPONIN ( 54548), PT DENIES SOB AND CHEST PAIN AT 0700-1000PM, PT WAS GOING [facility] AT 1000AM, RN HAS GIVING REPORT TO PILOT BOAT CAPTAIN , PT WILL GOING TO ICU AFTER [facility] DONE.
--- NOTE | 2021-07-30 16:11 | EKG ---
[facility] [address] [employer] [place] [address] ELECTROCARDIOGRAM REPORT Name: LEANNE WEBB Room #: 238-P ADM IN M.R.#: [id number] Admission: 07/24/21 Attend Phys: Sahara Parra Discharge: Date of : 77 Report #: [id number] [facility] Test Date: 2021-07-30 Test Time: 06:21:57 Pat Name: LEANNE WEBB Department: Room: 238 Gender: F Message And Delivery Service Pricer: 1234 : 1975 Requested By: Katia Garcia Order Number: [id number] MD: Jose Manuel Davis Measurements Intervals [place] Rate: 126 P: 61 AR: 114 QRS: 256 QRSD: 109 T: 46 QT: 340 QTc: 493 Interpretive Statements Sinus tachycardia LAE, consider biatrial enlargement Compared to ECG 05/29/2021 13:02:48 Sinus rhythm no longer present Left ventricular hypertrophy no longer present Early repolarization no longer present Electronically Signed On 07-30-2021 16:11:27 MATERIAL DAMAGE APPRAISER by Jose Manuel Davis [email or web address] <ELECTRONICALLY SIGNED> By: Jose Manuel Davis MD, [facility] [id number] Jose Manuel Davis MD, [facility] /EPI
--- NOTE | 2021-07-30 16:12 | EKG ---
[place] [address] [address] [facility] [place] [address] ELECTROCARDIOGRAM REPORT Name: LEANNE WEBB Room #: 238-P ADM IN M.R.#: [id number] Admission: 07/24/21 Attend Phys: Sahara Parra Discharge: Date of : 77 Report #: [id number] [facility] Test Date: 2021-07-30 Test Time: 06:23:04 Pat Name: LEANNE WEBB Department: Room: 238 Gender: F Regulatory And Compliance Technician: 1234 : 1975 Requested By: Sahara Parra Order Number: [id number] MD: Jose Manuel Davis Measurements Intervals [place] Rate: 125 P: 57 IL: 112 QRS: 45 QRSD: 113 T: 49 QT: 299 QTc: 432 Interpretive Statements Sinus tachycardia Incomplete right bundle branch block Extensive anterior infarct, acute Compared to ECG 07/30/2021 06:21:57 Myocardial infarct finding still present Electronically Signed On 07-30-2021 16:12:04 PRECISION INSPECTOR by Jose Manuel Davis [email or web address] <ELECTRONICALLY SIGNED> By: Jose Manuel Davis MD, [facility] 07/30/21 1612 2 2 Jose Manuel Davis MD, FACC /EPI
--- NOTE | 2021-07-30 16:27 | NUR ---
SW reviewed chart and spoke with nursing and attending physician. Pt was transferred to from ICU over the weekend. Pt remains in Enhanced Isolation due to COVID. Pt has been febrile and is on room air. Pt is on IV abx. Cardiology consulted due to chest pain. Pt with elevated troponin and went to the ear mold laboratory technician earlier today. Pt transferred to the ICU after procedure. Will need therapy evals ordered when able to participate. Following to assist as needed with discharge planning.
--- NOTE | 2021-07-30 19:46 | NUR ---
PT AOX3-4, SLEEPY, VOID IN BEDPAN HAD 1 EPSISODE OF INCONTINENCE, PT HAVING VAGINAL BLEED. PT C/O OF RIGHT LEG PAIN. RIGHT FOOT WARM, MODELED, DISCOLORED. LT LEG W/ SHEATH DRESSING DRY AND INTACT. PT TOLERATED HH DIET,
[2021-07-31] VITALS (26 sets, daily range): BP systolic 112–163; BP diastolic 67–97
--- NOTE | 2021-07-31 03:27 | NUR ---
PT IS ALERT AND ORIENTED X3 DROWSY THOUGH. LUNGS ARE CLEAR TO DIMINISHED. ABDOMEN IS ROUND BOWEL SOUNDS ACTIVE X4. NPO SINCE MIDNIGHT. PAIN MEDS GIVEN FOR PAIN IN RIGHT LEG. RIGHT LEG IS WARM MOTTLED AND DISCOLORED IN APPEARANCE. LEFT LEG HAS THE SHEATH CLEAN DRY AND INTACT. TPA AND INTEGRINS INFUSING IN THE LEFT LEG. PT SLEEPING DURING THE NIGHT. SINUS TACH ON THE CANCER GENETICS ASSISTANT AND TEMP 100.4. TYLNEOL GIVEN TO HELP. HR 119-120'S METOPROLOL GIVEN AND DR. SPRING NOTIFIED OF HEART RATE. ONGOING NURSING CARE AT THIS TIME. LEFT LEG KEPT STRAIGHT.
[2021-07-31 05:29] LABS: HEMOGLOBIN 7.1 gm/dL (12.0-15.0); MCHC 29.4 g/dL (28.0-37.0); MCV 57.9 fL (80.0-100.0); PLATELET COUNT 82 thou/uL (150-400); RBC 4.15 mil/uL (4.20-5.00); RDW 19.6 % (10.5-14.5); WBC 12.1 thou/uL (4.0-11.0)
[2021-07-31 06:14] LABS: ALBUMIN 1.5 g/dL (3.4-5.0); CALCIUM 7.8 mg/dL (8.5-10.1); CREATININE 0.9 mg/dL (0.6-1.0); MAGNESIUM 1.9 mg/dL (1.8-2.4); POTASSIUM 3.2 mmol/L (3.5-5.1); TOTAL BILIRUBIN 0.2 mg/dL (0.2-1.0); TOTAL PROTEIN 5.8 g/dL (6.4-8.2)
--- NOTE | 2021-07-31 07:55 | NUR ---
Pt TRANSFERRED TO ICU. WILL PLACE ON HOLD AND AWAIT NEW ORDERS TO RESUME
--- NOTE | 2021-07-31 08:32 | NUR ---
PT AOX3-4, DROWSY, PT SIGN CONSENT FOR MANAGER BUSINESS NURSE, PT SWALLOWED PILLS AND SENT TO MANAGER BUSINESS.
[2021-07-31 10:22] LABS: ABSOLUTE NEUTROPHILS 10.2 thou/uL (1.4-8.2); ANISOCYTOSIS 2+; MICROCYTES 2+
[2021-07-31 10:23] LABS: HYPOCHROMASIA 2+; LARGE PLATELETS OCCASIONAL; POIKILOCYTOSIS SLIGHT
--- NOTE | 2021-07-31 11:42 | CATHLAB ---
[facility] [place] [address] [place] [address] INVASIVE PROCEDURE REPORT Name: LEANNE WEBB Room #: 238-P ADM IN M.R.#: [id number] Admission: 07/24/21 Attend Phys: Sahara Spicer Siobhan Discharge: Date of : 77 Report #: [id number] THIS REPORT FOR: cc: FAM - No family physician/PCP FAM - No family physician/PCP Porter Pena MD [facility] ~ APPROVED REPORT Study performed: 07/30/2021 10:02:05 Patient Details Patient Status: In-Patient Room #: 358 The patient is a 46 year-old female Event Personnel Porter Pena Trim Machine Adjuster, Daniella Payton, BOILERMAKER LOFTSMAN Monitor, More Love Burkart, David Interventional Radiologist Procedures Performed Art Access - L femoral artery* Left Heart Cath w/or w/o Coronaries [id number] [facility] PTCA Single Vessel LAD [id number] [place] 63983 Initial Mod Sed Same Phys/QHP Gr5y 412690 06293 Mod Sed Same Phys/QHP Ea 932562 Indication Chest pain Procedure Narrative The Left Groin^ was infiltrated with 1% Lidocaine subcutaneous anesthesia. A PINNACLE 6FR Sheath #[id number] sheath was inserted into the LFA^. Coronary angiography was performed using coronary diagnostic catheters. The right coronary system was accessed and visualized with a JR4 catheter. The left coronary system was accessed and visualized with a JL4 catheter. The left ventricle was accessed and visualized with a PIGTAIL catheter. Left ventriculogram was performed in 30 degree projection. An aortogram of the abdominal aorta was performed. Sutured in place Intraoperative Conscious Sedation Sedation start time: 11:41 Case end Time: 14:03 Fentanyl 100 mcg Versed 1 mg Conscious sedation is a combined total for the left heart cath and [facility] [address] [place] [address] INVASIVE PROCEDURE REPORT Name: EMANUEL WEBBLY Room #: [facility] IN M.R.#: [id number] Admission: 07/24/21 Attend Phys: Sahara Damian Discharge: Date of : 77 Report #: [id number] intervention plus lower extremity runoff procedure. Fluoro time and dosage are a combined total for the left heart cath and intervention plus lower extremity runoff procedure. Contrast is a combined total for the left heart cath and intervention plus lower extremity runoff procedure. Fluoro Time: 51.10 minutes Dose: DAP 94829.16 cGycm2 6874 mGy Contrast Type and Amount: Visipaque 360 ml Hemodynamics The aortic pressure is 123/76 mmHg with a mean of 96 mmHg. The left ventricular pressure is 135/2 mmHg with a mean of mmHg. The left ventricular end diastolic pressure is 12 mmHg. PCI Technique Lesion Percutaneous coronary intervention was performed on the mid left anterior descending artery segment. A LAUNCHER 6FR EBU 3.5 #[id number] Guide Catheter was used to engage the ostium. A Luge Wire .014 x 182CM #[id number] Interventional Guidewire was used to cross the lesion. BALLOON DILATION A Balloon catheter Sprinter OTW 2.5 x 12 #[id number] was inserted and inflated up to 4.00atm for 18seconds. Additional Inflation: 8.00atm for 12seconds. Additional Inflation: 8.00atm for 9seconds. Additional inflation: 8 abeba for 15 seconds Additional inflation: 10 abeba for 9 seconds A second balloon catheter, 2.25 x 20 Sprinter OTW was inserted and inflated up to 14 abeba for 13 seconds. Additional inflation: 14 abeba for 20 seconds. Additional inflation: 10 abeba for 18 seconds. Additional inflation: 12 abeba for 10 seconds. PCI Technique Lesion 2 Percutaneous Coronary Intervention was performed on the distal left anterior descending artery segment. A LAUNCHER 6FR EBU 3.5 #[id number] Guide Catheter was used to engage the ostium. A Luge Wire .014 x 182CM #[id number] Interventional Guidewire was used to cross the lesion. Balloon Dilation A Balloon catheter Sprinter OTW 2.5 x 12 #[id number] was inserted and inflated up to 3atm for 20seconds. Additional Inflation: 4atm for 32seconds. Additional Inflation: 4atm for 10seconds. Additional inflation: 4 abeba for 15 seconds A second balloon catheter, 2.25 x 20 Sprinter OTW was inserted and inflated up to 4 abeba for 13 seconds. Additional inflation: 8 abeba for 13 seconds. Additional inflation: 8 [facility] [address] [place] [address] INVASIVE PROCEDURE REPORT Name: LEANNE WEBB Room #: 238-P [facility] IN M.R.#: [id number] Admission: 07/24/21 Attend Phys: Jetinder Spicer Mar Discharge: Date of : 77 Report #: [id number] abeba for 8 seconds. Additional inflation: 8 abeba for 8 seconds. Additional inflation: 12 abeba for 8 seconds. Conclusion #1 PTCA of a proximally occluded LAD vessel. 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 Was able to eventually wire this vessel to some collateral filling distally. Balloon was passed throughout the entirety and dilated the vessel. Unable to restore any significant flow into this vessel. Suspect significant long-term occlusion or thrombus laden. Hemodynamically stable and pain-free no EKG changes. #2 large codominant circumflex system without significant occlusive disease providing some collateral filling left to left of the distally occluded LAD. #3 left main large and widely patent giving rise to LAD and circumflex. #4 codominant RCA also provides some collateral filling to the occluded LAD no occlusive disease #5 normal left ventricular size and subtle anteroapical wall leg EF 45 to 50% range #6 abdominal aorta is mildly tortuous but no aneurysm formation. Recommendations and plan: Continue aggressive risk factor modification. 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 But collateralization and LV function are well preserved. Significant right lower extremity pain. Dr. Ellsworth to perform lower extremity angiography this is may be a acute right lower extremity occlusion. See his dictation. Patient will transfer back to CCU ICU hemodynamically stable. <ELECTRONICALLY SIGNED> By: Porter Pena MD, FACC 07/31/21 1142 114 114 Porter Pena MD, FACC /INF
--- NOTE | 2021-07-31 13:14 | 2DMMODE ---
[address] [address] D/M-MODE ECHOCARDIOGRAM Name: LEANNE WEBB Room #: 238-P ADM IN M.R.#: [id number] Admission: 07/24/21 Attend Phys: Sahara Parra Discharge: Date of : 77 Report #: [id number] THIS REPORT FOR: cc: FAM - No family physician/PCP FAM - No family physician/PCP Sai Kinsey MD [facility] ~ APPROVED REPORT Study performed: 07/31/2021 11:45:39 EXAM: Comprehensive 2D, Doppler, and color-flow Echocardiogram Patient Location: Bedside BSA: 1.82 HR: 109 bpm BP: 133/86 mmHg Rhythm: Tachycardia Other Information Study Quality: Adequate Indications Diabetes CAD Chest Pain Aortic Valve AoV Peak Judah.: 1.77 m/s AO Peak Gr.: 12.47 mmHg Left Ventricle The left ventricle is normal size. Mild concentric left ventricular hypertrophy. The overall left ventricular systolic function appears mildly reduced LVEF is 45-50%. Mid to distal septal and inferoapical hypokinesis Right Ventricle The right ventricle is normal size. The right ventricular systolic function is normal. Atria Left atrium is at the upper limits of normal. The right atrium size is normal. [address] [address] D/M-MODE ECHOCARDIOGRAM Name: LEANNE WEBB Room #: 238-P ADM IN M.R.#: [id number] Admission: 07/24/21 Attend Phys: Sahara Damian Discharge: Date of : 77 Report #: [id number] Aortic Valve The aortic valve is normal in structure. No aortic regurgitation is present. There is no aortic valvular stenosis. Mitral Valve The mitral valve is normal in structure. Mild mitral regurgitation. No evidence of mitral valve stenosis. Tricuspid Valve The tricuspid valve is normal in structure. There is no tricuspid valve regurgitation noted. Pulmonic Valve The pulmonary valve is normal in structure. There is no pulmonic valvular regurgitation. Great Vessels The aortic root is normal in size. Pericardium There is no pericardial effusion. <Conclusion> Abbreviated study The overall left ventricular systolic function appears mildly reduced LVEF is 45-50%. Mid to distal septal and inferoapical hypokinesis The aortic valve is normal in structure. No aortic regurgitation or stenosis The mitral valve is normal in structure. Mild mitral regurgitation. There is no pericardial effusion. <ELECTRONICALLY SIGNED> By: Sai Kinsey MD, FACC 07/31/214 13 13 Sai Kinsey MD, FACC /INF
--- NOTE | 2021-07-31 13:53 | NUR ---
WOUND CARE NOTE; I WAS ASKED TO GET A SPECIAL BOOT TO OFFLOAD THE PATIENTS FOOT MORE EFFECTIVELY. THE FOOT HAS S/S OF ICHIMIA WITH SKIN CHANGES AND GREAT PAIN. NO OPEN AREAS WERE SEEN. THE BOOT WAS PLACED WITH MINIMAL DISCOMFORT. DISCUSSED WITH RN IN THE ROOM.
[2021-07-31 19:20] LABS: APTT 44.5 Seconds (24.5-32.8); INR 1.14; PROTIME 12.4 Seconds (10.5-12.1)
[2021-08-01] VITALS (28 sets, daily range): BP systolic 104–149; BP diastolic 58–98
[2021-08-01 06:01] LABS: HEMATOCRIT 24.4 % (37.0-47.0); HEMOGLOBIN 7.1 gm/dL (12.0-15.0); MCH 17.1 pg (26.0-34.0); MCHC 29.2 g/dL (28.0-37.0); MCV 58.6 fL (80.0-100.0); RBC 4.16 mil/uL (4.20-5.00); RDW 20.1 % (10.5-14.5); WBC 15.3 thou/uL (4.0-11.0)
[2021-08-01 06:49] LABS: ALBUMIN 1.5 g/dL (3.4-5.0); ANION GAP 12 mmol/L (7-16); BUN 7 mg/dL (7-18); CHLORIDE 107 mmol/L (98-107); CO2 22 mmol/L (21-32); CREATININE 0.9 mg/dL (0.6-1.0); GLUCOSE 230 mg/dL (74-106); MAGNESIUM 1.7 mg/dL (1.8-2.4); POTASSIUM 3.6 mmol/L (3.5-5.1); SGOT 153 U/L (15-37); SGPT 85 U/L (30-65); SODIUM 141 mmol/L (136-145); TOTAL BILIRUBIN < 0.1 mg/dL (0.2-1.0); TOTAL PROTEIN 6.3 g/dL (6.4-8.2)
--- NOTE | 2021-08-01 07:23 | NUR ---
Called ALEX Elaine at 2030 07/31/21 for Heparin bolus order. Awaited return phone call. Chele did not feel comfortable ordering bolus since cardiology put the protocol in. Dr. David was called and he ordered the PRN heparin bolus protocol. After pharmacy verified the medication, I was then able to give the pt the bolus. PTT was ordered before 0300, lab was called at 0300, 0400, and 0500 to draw the PTT. Following their draw at 0520, pt recieved another heparin bolus and to increase the gtt two more units/kg/hr.
[2021-08-01 09:36] LABS: % SATURATION 5 % (20-39); IRON 9 ug/dL (50-170); TIBC 185 ug/dL (250-450)
--- NOTE | 2021-08-01 10:55 | NUR ---
Discussed during unit rounds and los. new order therapy to eval. o2 2L/nc, was on heparin bolus. Enhanced Isolation, COVID +. Possible able to move out of icu today. Will need to see if oxygen can be tapered off prior to dc when she is medically stable, dc home.
--- NOTE | 2021-08-01 11:22 | NUR ---
MESSAGE LEFT ON CM DEPT LINE FROM HOME STATE ELECTRICAL LINEWORKER ANTHONY WHO IS AVAILABLE FOR ANY DC PLANNING NEEDS AT # [phone]. ICU CM UPDATED.
--- NOTE | 2021-08-01 18:40 | NUR ---
Patient came to 4W at 1530. Cox catheter remove, PT working with patient, RN took patient to CT scan. Patient is a hard stick, unable to place an IV, try to consult IV team, Heparin running at 15.99 ml/hr. call light within reach, will continous monitoring.
--- NOTE | 2021-08-02 04:25 | NUR ---
patient aox4 make needs known.patient uses bedside commode. patient has unsteady gaits. patient has produs boot on lle. patient on 2l of 0xygen no soa or distress noted this shift. patient on heparin drip. flow shet was not in the chart called pharmacy. phamacy was to put the flow sheet in the lift but printer was not working, i got vebal order after going to the lift twice. got the order at around 0000 so next aptt is at 0600.fall precaution in place. patient in bed asleep at this time breathing rwgular and unlaboured.
[2021-08-02 05:03] VITALS: BP 111/67
[2021-08-02 07:02] LABS: MCH 16.8 pg (26.0-34.0)
[2021-08-02 07:05] LABS: HEMATOCRIT 24.3 % (37.0-47.0); HEMOGLOBIN 6.9 gm/dL (12.0-15.0); MCHC 28.4 g/dL (28.0-37.0); MCV 59.4 fL (80.0-100.0); RBC 4.09 mil/uL (4.20-5.00); RDW 20.1 % (10.5-14.5); WBC 14.4 thou/uL (4.0-11.0)
[2021-08-02 07:41] LABS: ALBUMIN 1.5 g/dL (3.4-5.0); ANION GAP 13 mmol/L (7-16); BUN 10 mg/dL (7-18); CALCIUM 8.2 mg/dL (8.5-10.1); CHLORIDE 104 mmol/L (98-107); CO2 23 mmol/L (21-32); GLUCOSE 168 mg/dL (74-106); MAGNESIUM 1.7 mg/dL (1.8-2.4); POTASSIUM 3.2 mmol/L (3.5-5.1); SGOT 133 U/L (15-37); SGPT 83 U/L (30-65); SODIUM 140 mmol/L (136-145); TOTAL BILIRUBIN < 0.1 mg/dL (0.2-1.0); TOTAL PROTEIN 6.5 g/dL (6.4-8.2)
[2021-08-02 07:45] VITALS: BP 132/71
[2021-08-02 08:07] LABS: AMP/METHAMP Negative (Negative); BARBITURATES Negative (Negative); BENZODIAZEPINES POSITIVE (Negative); COCAINE Negative (Negative); METHADONE Negative (Negative); OPIATES POSITIVE (Negative); PCP Negative (Negative)
[2021-08-02 12:12] VITALS: BP 89/43
[2021-08-02 14:08] VITALS: BP 109/64; BP 149/87
--- NOTE | 2021-08-02 14:56 | NUR ---
CM REVIEWED CHART AND SPOKE WITH CARE TEAM. CARE TEAM INDICATED THAT PT IS GETTING BLOOD THIS DAY. PT SEEN BY OT THIS DAY. PT PROGRESSING TOWARD GOAL OF DISCHARGING HOME. CM FOLLOWING REGARDING DC PLANNING.
[2021-08-02 19:38] LABS: HEMOGLOBIN 7.8 gm/dL (12.0-15.0)
[2021-08-02 19:42] LABS: URINE BILIRUBIN NEGATIVE (Negative); URINE BLOOD 3+ (Negative); URINE CLARITY SL CLOUDY; URINE COLOR YELLOW; URINE GLUCOSE-RANDOM* NEGATIVE (Negative); URINE KETONES NEGATIVE (Negative); URINE NITRITE-REFLEX NEGATIVE (Negative); URINE PROTEIN (DIPSTICK) 1+ (Negative); URINE SPECIFIC GRAVITY 1.015 (1.005-1.035); URINE UROBILINOGEN 0.2 E.U./dl (0.2-1.0)
[2021-08-02 19:57] LABS: URINE LEUKOCYTES-REFLEX 3+ (Negative)
[2021-08-02 19:59] LABS: SQUAMOUS >10 Many /LPF (0-3)
[2021-08-02 20:00] LABS: BACTERIA-REFLEX >30 Many /HPF (None Seen); CASTS None Seen /LPF (None Seen); CRYSTALS None Seen /LPF (None Seen); URINE RBC 3-10 Few /HPF (NONE SEEN)
--- NOTE | 2021-08-03 02:53 | NUR ---
ASSUMED CARE AT 1930 OF 08/02. PATIENT IS A&OX4, NO REPORTS OF PAIN. C/O OF RUNNY NOSE AND CONGESTION, NEW ORDER FOR SCHEDULED LORATADINE RECEIVED AND IMPLEMENTED. CONTINUES ON HEPARIN DRIP, APTT AT HS WAS 34.7. FLOW SHEET INDICATED TO ADMINISTER A BOLUS OF 4.3ML, AND INCREASED RATE TO 21.96 U/Kg/hr. BOTH WERE IMPLEMENTED, AND APTT IS TO BE RECHECKED AT 0400. PIV IN RIGHT FOREARM IS INTACT AND PATENT, NO S/S OF INFECTION OR INFILTRATION NOTED. HS BG WAS 61, PATIENT DENIED HYPOGLYCEMIA SYMPTOMS. PATIENT PROVIDED WITH SNACKS REQUESTED BY PATIENT, BG WAS RECHECKED AT 2130 AND HAS INCREASED TO 92. MEDICAL LAB ASSISTANT PROVIDER NOTIFED AND ORDERED FOR BG TO BE RECHECKED AT 0400. WILL CONTINUE TO MONITOR. FALL PRECAUTIONS IN PLACE, CALL LIGHT WITHIN REACH.
[2021-08-03 07:17] LABS: HEMATOCRIT 25.4 % (37.0-47.0); HEMOGLOBIN 7.5 gm/dL (12.0-15.0); MCH 18.1 pg (26.0-34.0); MCHC 29.5 g/dL (28.0-37.0); MCV 61.3 fL (80.0-100.0); RBC 4.14 mil/uL (4.20-5.00); RDW 22.7 % (10.5-14.5); WBC 12.7 thou/uL (4.0-11.0)
[2021-08-03 07:24] VITALS: BP 126/89
[2021-08-03 07:30] LABS: ALBUMIN 1.4 g/dL (3.4-5.0); CALCIUM 8.2 mg/dL (8.5-10.1); CREATININE 0.9 mg/dL (0.6-1.0); POTASSIUM 3.1 mmol/L (3.5-5.1); TOTAL BILIRUBIN 0.2 mg/dL (0.2-1.0)
--- NOTE | 2021-08-03 08:22 | HC ---
[facility] [place] [address] CONSULTATION Name: LEANNE WEBB Room #: [facility]- ADM IN M.R.#: [id number] Admission: 07/24/21 Attend Phys: Sahara Parra Discharge: Date of : 77 Report #: [id number] THIS REPORT FOR: cc: FAM - No family physician/PCP FAM - No family physician/PCP John Costello MD ~ DATE OF SERVICE: 08/01/2021 INFECTIOUS DISEASE CONSULTATION ATTENDING PHYSICIAN: Dr. Loya. REASON FOR EVALUATION: Streptococcal septicemia. HISTORY OF PRESENT ILLNESS: Chart reviewed. The patient examined. This is a 46-year-old woman with known diabetes mellitus, presented to the Emergency Room on 07/24. MRI was performed previously, which had shown a small stroke. Initial evaluation noted a chest x-ray with no acute process; however, she was found to have laboratory evidence of diabetic ketoacidosis and a positive COVID testing. In addition to that, blood cultures were collected on admission, 1 out of 2, which grew Streptococcus thermophilus. She was empirically started on therapy with ceftriaxone and vancomycin, the latter was discontinued. She has been under a significant requirement of care in the intensive care unit. She clinically has improved, but she is still requiring supplemental oxygen, just at 2 L per nasal cannula. She does admit to middle back pain. She is still apparently encephalopathic. ALLERGIES: None known. CURRENT MEDICATIONS: Currently medicines include losartan, insulin, metoprolol, aspirin, famotidine, ceftriaxone, hydrocodone, levetiracetam, alprazolam, quetiapine. PAST MEDICAL HISTORY: As described above, diabetes mellitus, hypertension, anemia, has known vasculopathy including coronary artery disease. SOCIAL AND FAMILY HISTORY: Available in chart. REVIEW OF SYSTEMS: Otherwise, unremarkable. PHYSICAL EXAMINATION: GENERAL: She appears chronically ill and undernourished. She is not overtly toxic. She is encephalopathic. VITAL SIGNS: Temperature 98.7, pulse 105, respirations 12, blood pressure 134/85. SKIN: Warm, dry, no rashes. [facility] [address] [facility] [place] [address] CONSULTATION Name: LEANNE WEBB Room #: 451-P [facility] IN M.R.#: [id number] Admission: 07/24/21 Attend Phys: Sahara Parra Discharge: Date of : 77 Report #: [id number] HEENT: Normocephalic. Extraocular muscles intact. Nasal cannula in place. NECK: Supple. LUNGS: Bilateral scattered coarse breath sounds. HEART: Tachycardic, appears regular. I do not appreciate a murmur. ABDOMEN: Soft, mildly distended. No peritoneal signs. GENITOURINARY AND RECTAL: Deferred. LABORATORY DATA: As described above. Most recent ABG: pH 7.104, pCO2 of 12.4, pO2 of 122.0 on room air. Ferritin 195. Electrolytes: Sodium 141, potassium 3.6, chloride 107, bicarbonate 22, anion gap of 12, BUN and creatinine 7 and 0.9. AST 153, ALT of 85. Albumin 1.5. CBC: White count of 15.3, H and H 7.1 and 24.4, platelets of 93. Echo, mildly reduced left ventricular systolic function, 45-50%, unremarkable valves with no evidence of vegetation. Arteriogram, acute appearing occlusion of the robinson right popliteal artery, underwent TPA thrombolysis. Markedly elevated troponin consistent with acute myocardial injury. ASSESSMENT AND PLAN: 1. Streptococcal bacteremia isolated in 1 out of 2 blood cultures. This is an unusual organism. It is not entirely clear, but clearly she was quite ill when she presented. She has completed roughly 8 weeks of therapy. We will continue additional 2 days to complete a 10-day course. 2. Acute myocardial infarction. 3. Peripheral arterial occlusive disease, status post thrombolysis. 4. Diabetes mellitus with sequelae. 5. Encephalopathy, perhaps multifactorial. She is quite tenuous at this point. It is not entirely clear if she has focus of pyogenic. We will do additional diagnostic testing with some overlap utilizing antibiotics for another 48 hours ____ measures such as incentive spirometry. <ELECTRONICALLY SIGNED> By: John Costello MD 08/03/21 0822 [id number] John Costello MD /nt
[2021-08-03] MEDS ORDERED: XARELTO10 MG PO (14:42)
[2021-08-03] MEDS ORDERED: METOPROLOL SUCC25 M1 PO (14:43)
[2021-08-03] MEDS ORDERED: LANTUS SUBQ (14:44)
[2021-08-03] MEDS ORDERED: SEROQUEL 25 MG25 M1 PO (14:44)
[2021-08-03] MEDS ORDERED: NOVOLOG100 UNIT/1 SUBQ (14:45)
--- NOTE | 2021-08-03 14:54 | NUR ---
LAB HERE FOR HEPARIN BLOOD DRAW; 2 HOURS PAST DUE. DRAW WAS SCHEDULED FOR 1300.
--- NOTE | 2021-08-03 15:43 | NUR ---
SPOKE WITH WALTER IN PHARMACY ABOUT HEPARIN DRIP. CONTINUE DRIP UNTIL XARELTO IS ADMIN. NO BOLUS REQUIRED DUE TO DC.
--- NOTE | 2021-08-03 16:53 | NUR ---
DR. MCCALL HAD INDICATED SHE FELT PT WAS MEDICALLY STABLE TO DC HOME TODAY OR TOMORROW. FOUND THAT [facility] P: [facility]: ACCEPTS HER HOME STATE INSURANCE. CM FAXED REFERRAL TO THEM AND ANTONIETA IN INTAKE IS REVIEWING. CM DOESN'T HAVE A DETERMINATION IF THEY CAN ACCEPT OF THIS NOTE. PT WILL NEED A FWW FOR HOME USE. [facility] TAKES PT'S HOME STATE BUT THEY DON'T DELIVER OVER WEEKEND. A FWW CAN BE ISSUED TO PT TOMORROW UPON DC FROM THE [facility] CLOSET BY THERAPY DEPARTMENT TO [facility]. WILL NEED TO FOLLOW UP WITH [facility] TO SEE IF THEY CAN ACCEPT PT AT LEAST FOR NURSING FOR WOUND CARE TOMORROW. PT'S FRIEND FRANCESCO OR CASS'S SISTER MAY BE ABLE TO ASSIST WITH TRANSPORT HOME. CALL TEJAL AT [facility] TO SEE IF THEY CAN ACCEPT PT FOR DC TOMORROW FRIDAY AND HAVE PT ISSUE A FWW.
[2021-08-03 21:47] VITALS: BP 135/97
[2021-08-04 06:39] LABS: ALBUMIN 1.5 g/dL (3.4-5.0); CALCIUM 8.7 mg/dL (8.5-10.1); CREATININE 0.8 mg/dL (0.6-1.0); MAGNESIUM 1.9 mg/dL (1.8-2.4); POTASSIUM 3.6 mmol/L (3.5-5.1); TOTAL BILIRUBIN 0.1 mg/dL (0.2-1.0); TOTAL PROTEIN 6.7 g/dL (6.4-8.2)
[2021-08-04 07:27] VITALS: BP 157/82
[2021-08-04 07:30] VITALS: BP 143/94
[2021-08-04 08:01] LABS: HEMATOCRIT 28.3 % (37.0-47.0); MCH 17.8 pg (26.0-34.0); MCHC 28.4 g/dL (28.0-37.0); MCV 62.9 fL (80.0-100.0); RBC 4.5 mil/uL (4.20-5.00); RDW 22.5 % (10.5-14.5); WBC 11.5 thou/uL (4.0-11.0)
--- NOTE | 2021-08-04 10:48 | NUR ---
Called Didi MCLEOD; unable to reach [place]. Was on hold for several minutes; left message & number to call back with answering service. Will call back in an hour
--- NOTE | 2021-08-04 11:46 | NUR ---
LEFT MESSAGE WITH TEJAL AT INTAKE FOR MICHAEL MCLEOD, LEFT CHARGE NURSE NUMBER ON 4W FOR TEJAL TO CALL BACK TO. [facility] CHARGE NURSE AWARE AND ALSO CALLED AND LEFT MESSAGE. [facility]
--- NOTE | 2021-08-04 11:47 | NUR ---
NOTE THERE WAS POSSIBLE DISCHARGE TO HOME THIS WEEKEND. Pt ISSUED [employer] IN ANTICIPATION OF DISCHARGE.
[2021-08-04] MEDS ORDERED: ALPRAZOLAM 0.50.5 M1 PO (13:26)
[2021-08-04] MEDS ORDERED: HYDROCODON-ACE1 EAC7 PO (13:26)
[2021-08-04 14:33] VITALS: BP 143/94
--- NOTE | 2021-08-04 14:48 | NUR ---
PATIENT UPDATED ADDRESS TO [address] [place] [address] FOR HOME HEALTH
--- NOTE | 2021-08-04 15:43 | NUR ---
Patient was deemed medically stable to discharge home with home health. Patient was given discharge instructions & prescriptions. Patient picked up by dtr. No issues voiced other than pain on R foot. Patient was given cardiology contact info for f/u
[2021-08-06 19:06] LABS: SYPHILIS AB Non Reactive (Non Reactive)
[2021-08-08 07:09] LABS: HIV ANTIBODY Non Reactive (Non Reactive)
== END 2021-08-04 16:15 | disposition home health service (06) | DRG 853 ==
LOC: ER 07:52 → ICU 10:05 → EROBS 10:05 → 3W 10:05 → ICU 11:19 → 3W 07-29 19:50 → ICU 07-30 14:32 → 4W 08-01 15:51
PROVIDERS: Emergency Medicine; Internal Medicine; Nurse Practitioner; Specialist; ADMIT Hospitalist; ATTEND Hospitalist
DX: A40.9 Streptococcal sepsis, unspecified (principal); E11.10 Type 2 diabetes mellitus with ketoacidosis without coma; I21.3 ST elevation (STEMI) myocardial infarction of unspecified site; U07.1 COVID-19; J12.82 Pneumonia due to coronavirus disease 2019; E43 Unspecified severe protein-calorie malnutrition; G93.40 Encephalopathy, unspecified; N17.9 Acute kidney failure, unspecified; I10 Essential (primary) hypertension; E78.5 Hyperlipidemia, unspecified; E11.51 Type 2 diabetes mellitus with diabetic peripheral angiopathy without gangrene; D64.9 Anemia, unspecified; E87.6 Hypokalemia; R53.81 Other malaise; E83.42 Hypomagnesemia; Z79.4 Long term (current) use of insulin; Z68.24 Body mass index [BMI] 24.0-24.9, adult; Z91.19 Patient's noncompliance with other medical treatment and regimen
CPT/HCPCS: 10045; 10047; 10078; 10879; 27000